=== PATIENT | male | born 1955 | race Caucasian/White ===

== ENCOUNTER 2020-10-18 13:52 | Emergency (ER) | payer MEDICARE, OTHER ==
[~2020-10-18] VITALS: Ht 175.3 cm; Wt 84.2 kg
--- NOTE | 2020-10-18 14:34 | NUR ---
PT REPORTS "JADENAW GOT AWAY FROM ME WHILE I WAS CUTTING DOWN A TREE." PT HAS FULL THICKNESS LACERATION TO LEFT POSTERIOR HAND. ABLE TO MOVE ALL DIGITS AT THIS TIME. UNKNOWN LAST TETANUS. DR. MADERA TO BEDSIDE FOR EVALUAITON. TENDONS EXSPOSED UNDER L. POINTER FINGER. APPEARS SOME HAVE SEVERED. CMS INTACT. CAP REFILL <3 SECONDS IN ALL DIGITS. PT POSTIONED TO COMFORT. ATTACHED TO MONITORS. VSS. WEBSTER.
[2020-10-18] MEDS ORDERED: LIDOCAINE-MPF 1%, 5ML ONE (14:52)
--- NOTE | 2020-10-18 15:53 | NUR ---
DR. MADERA TO BEDSIDE TO SUTURE HAND. PT'S TO BEDSIDE. VSS. WEBSTER.
[2020-10-18] MEDS ORDERED: DIPH,PERTUSS(ACELL),TET VAC/PF 0.5 ML IM-VACC ONE (16:34)
[2020-10-18 16:46] VITALS: BP 143/79
[2020-10-18] MEDS ORDERED: HYDROcodone/APAP 5/325 TABLET ONE (16:53)
[2020-10-18] MEDS ORDERED: HYDROcodone/APAP 5/325 TABLET PO ONE (17:00)
[2020-10-18] MEDS ORDERED: TETANUS IMMUNE GLOBULIN/PF 250 UNIT IM ONE (17:00)
--- NOTE | 2020-10-18 17:03 | NUR ---
PT MEDICATED PER EMAR. HAND AND SUTURES WRAPPED. VSS. NADN.
--- NOTE | 2020-10-18 17:24 | NUR ---
Patient given discharge instructions and they have confirmed that they understand the instructions. Patient ambulatory with steady gait.
== END 2020-10-18 17:25 | disposition home or self-care (01) ==
LOC: ED 14:59
DX: S61.412A Laceration without foreign body of left hand, initial encounter (principal); X58.XXXA Exposure to other specified factors, initial encounter; Y93.89 Activity, other specified; Y92.009 Unspecified place in unspecified non-institutional (private) residence as the place of occurrence of the external cause; Y99.8 Other external cause status
CPT/HCPCS: 12042; 96372; 99284; J1670